=== PATIENT | female | born 1970 | race Two or more races ===

== ENCOUNTER → 2017-11-15 | Emergency (ER) | payer OTHER ==
[~2017-11-15] VITALS: Ht 170.2 cm; Wt 81.6 kg
[~2017-11-15] MED LIST: MEDROLPACK PO; VISTARIL25 MG PO
== END | disposition home or self-care (01) ==
LOC: ER 23:02
DX: R06.02 Shortness of breath (principal); R22.1 Localized swelling, mass and lump, neck

== ENCOUNTER 2017-11-23 09:03 | Outpatient (CLI) | payer OTHER | END 2017-11-23 09:08 | disposition home or self-care (01) | LOC: SONOGRAMA 09:03 | DX: E04.1 Nontoxic single thyroid nodule (principal) ==

== ENCOUNTER 2019-05-29 10:05 | Emergency (ER) | payer OTHER ==
[~2019-05-29] VITALS: Ht 170.2 cm; Wt 83.0 kg
[2019-05-29] MEDS ORDERED: INTESTINEX680 M1 PO (14:13)
[2019-05-29] MEDS ORDERED: PEPCID AC20 MG PO (14:13)
== END 2019-05-29 14:26 | disposition home or self-care (01) ==
LOC: ER 10:05
DX: K52.9 Noninfective gastroenteritis and colitis, unspecified (principal)